=== PATIENT | female | born 1955 | race Caucasian/White ===

== ENCOUNTER 2018-05-06 01:13 | Emergency (ER) | payer OTHER ==
[~2018-05-06] VITALS: Ht 5 cm; Wt 80.8 kg
--- NOTE | 2018-05-06 01:36 | ED.ADGEN ---
Adult General Chief Complaint Chief Complaint "".. [place]. And has been busy trying to put up things out of boxes. The grass kind of grown up around the trailer... At first I thought I got in contact with some weeds or bug bites but now my left foot and right hand is very swollen.... There is a little pustule, left foot... And area is hot and itchy and somewhat painful...' HPI HPI Patient is a 62 year old female who presents with above hx and complaints of allergic reactions or cellulitis and right hand and left foot. Patient does have a pointing abscess in the center of the cellulitic area of left foot. Patient has areas on both right hand and left foot of approximately 8 cm erythema and swelling. There is no striations. There is no adenopathy. Symptoms been present for less than 24 hours. Patient not sure her last tetanus shot. No history immunosuppression. No specific ill contacts. Review of Systems Review of Systems Constitutional: Denies fever or chills [] Eyes: Denies change in visual acuity, redness, or eye pain [] HENT: Denies nasal congestion or sore throat [] Respiratory: Denies cough or shortness of breath [] Cardiovascular: No additional information not addressed in HPI [] GI: Denies abdominal pain, nausea, vomiting, bloody stools or diarrhea [] : Denies dysuria or hematuria [] Musculoskeletal: Denies back pain or joint pain [] Integument: Right hand and left foot rash, edema and swelling. Neurologic: Denies headache, focal weakness or sensory changes [] Endocrine: Denies polyuria or polydipsia [] All other systems were reviewed and found to be within normal limits, except as documented in this note. Family History Family History Noncontributory Current Medications Current Medications Current Medications Medications (Trade) Dose Ordered Sig/Everardo Start Time Stop Time Status Last Admin Dose Admin Diphtheria/ Tetanus/Acell Pertussis (Boostrix) 0.5 ml ONCE ONCE 05/06/18 03:00 05/06/18 03:01 DC 05/06/18 02:53 0.5 ML Levofloxacin (Levaquin) 500 mg 1X ONCE 05/06/18 02:00 05/06/18 02:03 DC 05/06/18 02:21 500 MG Prednisone (Prednisone) 50 mg 1X ONCE 05/06/18 02:00 05/06/18 02:03 DC 05/06/18 02:21 50 MG Tetanus/ Diphtheria Toxoids Adsorbed (Diphtheria-Tetanus Toxoids-Ped) 0.5 ml ONCE ONCE 05/06/18 02:00 05/06/18 02:01 Cancel Allergies Allergies Allergies Coded Allergies Type Severity Reaction Last Updated Verified sulfamethoxazole Allergy Severe Hives 05/06/18 Yes trimethoprim Allergy Severe Hives 05/06/18 Yes Physical Exam Physical Exam Constitutional: Moderate distress, non-toxic appearance. [] HENT: Normocephalic, atraumatic, bilateral external ears normal, oropharynx moist, no oral exudates, nose normal. [] Eyes: PERRLA, EOMI, conjunctiva normal, no discharge. [Glasses] Neck: Normal range of motion, no tenderness, supple, no stridor. [] Cardiovascular:Heart rate regular rhythm, no murmur [] Lungs & Thorax: Bilateral breath sounds clear to auscultation [] Abdomen: Bowel sounds normal, soft, no tenderness, no masses, no pulsatile masses. [] Obese Skin: Warm, dry, rash, and erythema as per history of present illness Back: No tenderness, no CVA tenderness. [] Extremities: No tenderness, no cyanosis, no clubbing, ROM intact, no edema. [] Neurologic: Alert and oriented X 3, normal motor function, normal sensory function, no focal deficits noted. [] Psychologic: Affect anxious, judgement normal, mood normal. [] Current Patient Data Vital Signs Vital Signs Date Time Temp Pulse Resp B/P (MAP) Pulse Ox O2 Delivery O2 Flow Rate FiO2 05/06/18 01:43 98.2 81 18 96 Room Air EKG EKG [] Radiology/Procedures Radiology/Procedures [] Course & Med Decision Making Course & Med Decision Making Pertinent Labs and Imaging studies reviewed. (See chart for details). Incision and drainage procedure- [Abscess cleaned with Betadine and incision and drainage with 11 blade. Small amount pus removed. Applied. Tetanus was updated Massage area of cellulitis with Polysporin 4 times a day. Take Benadryl 50 mg up 4 times a day for itching symptoms. Take [id number] Tylenol and ibuprofen for discomfort. Take Levaquin 500 mg daily for 5 days. Prednisone 50 mg a day for 5 days.. Follow-up primary care. Return if any concerns. Patient given referral for cardiology per her request [] Final Impression Final Impression 1. Cellulitis and abscess left foot and right hand[] Dragon Disclaimer Dragon Disclaimer This electronic medical record was generated, in whole or in part, using a voice recognition dictation system. CONNIE CESPEDES MD May 06, 2018 01:36
[2018-05-06 01:43] VITALS: BP 123/65
[2018-05-06] MEDS ORDERED: LEVO500T59 PO (01:52)
[2018-05-06] MEDS ORDERED: PRED50TA PO (01:52)
[2018-05-06] MEDS ORDERED: predniSONE 20 MG TABLET PO ONE (02:00)
[2018-05-06] MEDS ORDERED: TETANUS,DIPHTHERIA TOXD PED PF 0.5 ML VIAL. VAX IM ONE (02:00)
[2018-05-06] MEDS ORDERED: levoFLOXacin 500 MG TABLET PO ONE (02:00)
[2018-05-06] MEDS ORDERED: DIPHTH,PERTUSS(ACELL),TET TOX 0.5 ML DISP.SYRIN. VAX IM ONE (03:00)
== END 2018-05-06 03:16 | disposition home or self-care (01) ==
LOC: ER 01:13
DX: L02.612 Cutaneous abscess of left foot (principal); L03.113 Cellulitis of right upper limb; Z88.1 Allergy status to other antibiotic agents; Z88.2 Allergy status to sulfonamides
CPT/HCPCS: 10060; 90471; 90715; 99283; J7512

== ENCOUNTER → 2018-07-06 | Outpatient (CLI) | payer OTHER ==
[~2018-07-06] MED LIST: LEVO500T59 PO; PRED50TA PO
--- NOTE | 2018-07-20 17:40 | RAD ---
DATE: 07/06/2018 EXAM: MAMMO ASHWINI SCREENING BILATERAL HISTORY: Routine screening COMPARISON: 09/17/2017 This study was interpreted with the benefit of Computerized Aided Detection (CAD). Breast Density: SCATTERED The breast parenchyma shows scattered fibroglandular densities. Breast parenchyma level B. FINDINGS: 2-D and 3-D tomosynthesis imaging was performed in CC and MLO projections. Several smooth small nodules are present in both breasts, better demonstrated on the tomosynthesis images than on the prior 2-D study. Bilateral smooth nodules such as this tend to be benign. No enlarging breast densities or architectural distortion is seen. There are scattered benign type calcifications in both breasts. No suspicious microcalcifications have developed. IMPRESSION: Stable mammograms without evidence of malignancy. BI-RADS CATEGORY: 2 BENIGN FINDING(S) RECOMMENDED FOLLOW-UP: 12M 12 MONTH FOLLOW-UP PQRS compliance statement: Patient information was entered into a reminder system with a target due date for the next mammogram. Mammography is a sensitive method for finding small breast cancers, but it does not detect them all and is not a substitute for careful clinical examination. A negative mammogram does not negate a clinically suspicious finding and should not result in delay in biopsying a clinically suspicious abnormality. "Our facility is accredited by the [employer] Mammography [employer]."
== END | disposition home or self-care (01) ==
LOC: MAMMO 08:47
PROVIDERS: ATTEND Family Medicine
DX: Z12.31 Encounter for screening mammogram for malignant neoplasm of breast (principal)
CPT/HCPCS: 77063; 77067

== ENCOUNTER → 2019-07-08 | Outpatient (CLI) | payer MEDICARE, OTHER ==
--- NOTE | 2019-07-08 14:39 | RAD ---
DATE: 07/08/2019 EXAM: MAMMO ASHWINI SCREENING BILATERAL HISTORY: Routine screening COMPARISON: 09/17/2017 and 07/06/2018 mammographic exams This study was interpreted with the benefit of Computerized Aided Detection (CAD). Breast Density: SCATTERED The breast parenchyma shows scattered fibroglandular densities. Breast parenchyma level B. FINDINGS: No suspicious calcifications, masses, or distortion. IMPRESSION: Stable BI-RADS CATEGORY: 1 NEGATIVE RECOMMENDED FOLLOW-UP: 12M 12 MONTH FOLLOW-UP PQRS compliance statement: Patient information was entered into a reminder system with a target due date for the next mammogram. Mammography is a sensitive method for finding small breast cancers, but it does not detect them all and is not a substitute for careful clinical examination. A negative mammogram does not negate a clinically suspicious finding and should not result in delay in biopsying a clinically suspicious abnormality. "Our facility is accredited by the [employer] Mammography [employer]."
== END | disposition home or self-care (01) ==
LOC: MAMMO 09:29
PROVIDERS: ATTEND General Practice
DX: Z12.31 Encounter for screening mammogram for malignant neoplasm of breast (principal)
CPT/HCPCS: 77063; 77067

== ENCOUNTER → 2020-02-28 | Outpatient (CLI) | payer MEDICARE ==
--- NOTE | 2020-02-28 16:54 | RAD ---
EXAM: Lumbar spine, 3 views. HISTORY: Pain. COMPARISON: None. FINDINGS: 3 views of the lumbar spine are obtained. There is grade 1 listhesis of L4 and L5 and L5 and S1. There is facet arthropathy at L3-L4, L4-L5 and L5-S1. There is no fracture. IMPRESSION: 1. Grade 1 anterolisthesis at the lower lumbar levels. 2. Facet arthropathy at the mid lower lumbar levels. Electronically signed by: Yesy Layton MD (02/28/2020 4:51 PM) [facility]
== END | disposition home or self-care (01) ==
LOC: RAD 12:48
PROVIDERS: ATTEND Family Medicine
DX: M47.817 Spondylosis without myelopathy or radiculopathy, lumbosacral region (principal)
CPT/HCPCS: 72100

== ENCOUNTER → 2020-04-19 | Outpatient (CLI) | payer MEDICARE ==
[~2020-04-19] MED LIST changes: +0.9 % SODIUM CHLORIDE 10 ML VIAL. ONE; +AMLO-187 PO; +ATOR40TA59 PO; +BACL10TA PO; +CHLO50TA PO; +DEXAMETHASONE SOD PHOS 10 MG/ML VIAL. ONE; +DIAZ5TAB PO; +DULO60CA6 PO; +HYDR-3165 PO; +IOHEXOL 300 MG/ML 50 ML VIAL. ONE; +LIDOCAINE 1% PF 30 ML VIAL. ONE; +LISI-338 PO; +MELO15TA6 PO
[2020-04-19 13:44] VITALS: BP 136/64
== END | disposition home or self-care (01) ==
LOC: SURG 12:50
PROVIDERS: ATTEND Anesthesiology
DX: M47.26 Other spondylosis with radiculopathy, lumbar region (principal); I10 Essential (primary) hypertension; M19.90 Unspecified osteoarthritis, unspecified site; F32.9 Major depressive disorder, single episode, unspecified; Z89.612 Acquired absence of left leg above knee; Z89.611 Acquired absence of right leg above knee; Z98.890 Other specified postprocedural states; Z88.1 Allergy status to other antibiotic agents; Z91.040 Latex allergy status; Z79.899 Other long term (current) drug therapy; Z88.6 Allergy status to analgesic agent
CPT/HCPCS: 62323; J1100; J2001; Q9967

== ENCOUNTER → 2020-05-03 | Outpatient (CLI) | payer MEDICARE ==
[~2020-05-03] MED LIST changes: -0.9 % SODIUM CHLORIDE 10 ML VIAL. ONE; +BUPIVACAINE MPF 0.25% 10 ML VIAL. ONE; -DEXAMETHASONE SOD PHOS 10 MG/ML VIAL. ONE; -IOHEXOL 300 MG/ML 50 ML VIAL. ONE
[2020-05-03 10:38] VITALS: BP 129/63
== END | disposition home or self-care (01) ==
LOC: SURG 09:53
PROVIDERS: ATTEND Anesthesiology
DX: M47.816 Spondylosis without myelopathy or radiculopathy, lumbar region (principal); M54.5 Low back pain; M54.16 Radiculopathy, lumbar region; I10 Essential (primary) hypertension; M19.90 Unspecified osteoarthritis, unspecified site; F32.9 Major depressive disorder, single episode, unspecified; Z89.612 Acquired absence of left leg above knee; Z89.611 Acquired absence of right leg above knee; Z98.890 Other specified postprocedural states; Z79.899 Other long term (current) drug therapy
CPT/HCPCS: 64493; 64494; J2001; J3490

== ENCOUNTER → 2020-08-02 | Outpatient (CLI) | payer MEDICARE ==
[2020-05-17 11:23] VITALS: BP 130/73
[~2020-08-02] MED LIST changes: -BUPIVACAINE MPF 0.25% 10 ML VIAL. ONE; -LIDOCAINE 1% PF 30 ML VIAL. ONE
--- NOTE | 2020-08-02 16:47 | RAD ---
EXAMINATION: MG BILAT SCREEN+ASHWINI CLINICAL HISTORY: Routine screening TECHNIQUE: Digital craniocaudal and mediolateral oblique views of the bilateral breasts obtained with 3-D tomosynthesis. COMPARISON: 07/08/2019, 07/06/2018, 09/17/2017 BREAST COMPOSITION: There are scattered areas of fibroglandular density. FINDINGS: No evidence of suspicious mass, calcifications, or areas of architectural distortion. IMPRESSION: No mammographic evidence of malignancy. BI-RADS ASSESSMENT: Category 1: Negative RECOMMENDATION: Return for routine bilateral screening mammogram in one year. PQRS compliance statement - Patient information was entered into a reminder system with a target due date for the next mammogram. "Our facility is accredited by the [employer] Mammography [employer]." Electronically signed by: Matt Sanders DO (08/02/2020 4:44 PM) [id number]
== END ==
LOC: MAMMO 08:23
PROVIDERS: ATTEND Family Medicine
DX: Z12.31 Encounter for screening mammogram for malignant neoplasm of breast (principal)
CPT/HCPCS: 77063; 77067

== ENCOUNTER → 2021-06-20 | Day surgery (SDC) | payer MEDICARE ==
[~2021-06-20] MED LIST changes: +BUPIVACAINE MPF 0.25% 10 ML VIAL. ONE; +DEXAMETHASONE SOD PHOS 10 MG/ML VIAL. ONE; -DULO60CA6 PO; +DULO60CA7 PO; +IOHEXOL 300 MG/ML 50 ML VIAL. ONE; +LIDOCAINE 1% PF 30 ML VIAL. ONE; -LISI-338 PO; +LISI5TAB15 PO
[2021-06-20 12:29] VITALS: BP 128/68
== END | disposition home or self-care (01) ==
LOC: SURG 11:10
PROVIDERS: ATTEND Anesthesiology
DX: M47.26 Other spondylosis with radiculopathy, lumbar region (principal); M43.10 Spondylolisthesis, site unspecified; M79.10 Myalgia, unspecified site; I10 Essential (primary) hypertension; F32.9 Major depressive disorder, single episode, unspecified; M19.90 Unspecified osteoarthritis, unspecified site; Z79.899 Other long term (current) drug therapy; Z98.890 Other specified postprocedural states; Z72.89 Other problems related to lifestyle; Z88.1 Allergy status to other antibiotic agents; Z91.040 Latex allergy status; Z88.2 Allergy status to sulfonamides
CPT/HCPCS: 62323; A4209; A4657; A4930; J1100; J3490; Q9967

== ENCOUNTER → 2021-08-03 | Outpatient (CLI) | payer MEDICARE ==
[2021-06-20 12:29] VITALS: BP 128/68
[~2021-08-03] MED LIST changes: -BUPIVACAINE MPF 0.25% 10 ML VIAL. ONE; -DEXAMETHASONE SOD PHOS 10 MG/ML VIAL. ONE; -IOHEXOL 300 MG/ML 50 ML VIAL. ONE; -LIDOCAINE 1% PF 30 ML VIAL. ONE
--- NOTE | 2021-08-03 11:30 | RAD ---
Digital bilateral screening mammogram with tomography dated 08/03/2021. INDICATION: 65 years of age asymptomatic female patient presents for screening mammography. . TECHNIQUE: Full field craniocaudal and mediolateral oblique images of both breasts were obtained usi ng digital technique with tomosynthesis and also analyzed with computer-aided detection software. . COMPARISON: 08/02/2020 07/08/2019. BREAST COMPOSITION: Category B: There are scattered fibroglandular densities. FINDINGS: No suspicious mass or clustered microcalcification. Pattern is stable. No architectural distortion. T here are scattered benign-appearing constipation, unchanged. IMPRESSION: Stable bilateral mammogram. RECOMMENDATION: Annual screening mammography is recommended, unless clinically indicated sooner based on symptoms or change in physical exam. BIRADS 1: NEGATIVE This study was interpreted with the benefit of Computerized Aided Detection (CAD). Recommend routine follow-up exam in one year. Patient information is entered into the reminder system with a target due date for the next screening mammogram. Mammography is the most sensitive method for finding small breast cancers, but it does not detect the m all and is not a substitute for careful clinical examination. A negative mammogram does not negate a clinically suspicious finding and should not result in delay in biopsying a clinically suspicious a bnormality. "Our facility is accredited by the [employer] Mammography Program." Electronically signed by: Boyd Bella MD (08/03/2021 11:28 AM) [id number]
== END ==
LOC: MAMMO 09:11
PROVIDERS: ATTEND Family Medicine
DX: Z12.31 Encounter for screening mammogram for malignant neoplasm of breast (principal); N64.89 Other specified disorders of breast
CPT/HCPCS: 77063; 77067

== ENCOUNTER → 2021-10-05 | Outpatient (CLI) | payer MEDICARE ==
[2021-06-20 12:29] VITALS: BP 128/68
--- NOTE | 2021-10-05 16:48 | RAD ---
XR LUMBAR SPINE 4+V 10/05/2021 4:14 PM Indication: Acute bilateral low back pain COMPARISON: Lumbar spine radiograph 02/28/2020 TECHNIQUE: 5 views of the lumbar spine are provided. FINDINGS/ IMPRESSION: 1. Superior endplate compression fracture identified at T12 with 25 percent height loss and minimal r etropulsion, age indeterminate. This finding is new from the prior examination from 02/28/2020. Furthe r evaluation with MRI of the lumbar spine could be of benefit. There is mild anteropulsion of fractur e. There is minimal height loss at T11 without definite fracture. 2. 8 mm anterolisthesis of L4 on L5. 3 mm anterolisthesis of L5 on S1. No definite pars defect. Moder ate to advanced facet arthropathy at L4-L5 and L5-S1. 3. Moderate osseous spinal canal stenosis at L4-L5. Osseous neural foraminal stenosis at L4-L5 and L5 -S1. 4. Atherosclerotic changes of the abdominal aorta. Moderate stool throughout colon. Electronically signed by: Leticia Mehta MD (10/05/2021 4:45 PM) [facility]
== END ==
LOC: RAD 15:42
PROVIDERS: ATTEND Nurse Practitioner Family
DX: I70.0 Atherosclerosis of aorta (principal); M43.17 Spondylolisthesis, lumbosacral region; M48.07 Spinal stenosis, lumbosacral region; M48.8X7 Other specified spondylopathies, lumbosacral region; M48.54XA Collapsed vertebra, not elsewhere classified, thoracic region, initial encounter for fracture
CPT/HCPCS: 72110